=== PATIENT | male | born 1980 | race Caucasian/White ===

== ENCOUNTER 2017-05-16 19:55 | Emergency (ER) | payer BC ==
[2017-05-16 20:09] VITALS: BP 119/73; PULSE 88; RESP 18; TEMP 100.4; O2SAT 99
--- NOTE | 2017-05-16 21:20 | ED PDOC ---
History of Present Illness History of Present Illness: 36yo male, presents with complaints of bodyaches and cough for the past couple days. Patient saw his PMD yesterday and was given Tamiflu, which he has been taking with no resolution in symptoms. He states he has taken Azithromycin in the past with relief of symptoms. He denies any fever, chills. No other complaints. HPI: Influenza Time Seen by Provider: 05/16/17 20:19 Chief Complaint: Flu-like Symptoms Chief Complaint (Provider): Flu like symptoms History Per: Patient Exam Limitations: no limitations Have you had recent travel within the past 21 days to any of: No Onset/Duration Of Symptoms: Days Symptoms include: bodyaches, cough Past Medical History Reviewed: Historical Data, Nursing Documentation, Vital Signs Vital Signs: Last Vital Signs Temp 100.4 F H 05/16/17 20:05 Pulse 88 05/16/17 20:05 Resp 18 05/16/17 20:05 BP 119/73 05/16/17 20:05 Pulse Ox 99 05/16/17 20:05 - Medical History PMH: Anxiety - Surgical History Surgical History: Appendectomy - Family History Family History: States: No Known Family Hx - Home Medications Home Medications: Ambulatory Orders Medication Instructions Recorded Famotidine [Pepcid] 20 mg PO DAILY #20 tab 12/08/13 - Allergies Allergies/Adverse Reactions: Allergies Allergy/AdvReac Type Severity Reaction Status Date / Time No Known Allergies Allergy Verified 12/08/13 03:25 Review of Systems Constitutional: Positive for: Other (bodyaches). Negative for: Fever, Chills Respiratory: Positive for: Cough Physical Exam - Reviewed Nursing Documentation Reviewed: Yes Vital Signs Reviewed: Yes - Physical Exam Appears: Positive for: Non-toxic, No Acute Distress Head Exam: Positive for: ATRAUMATIC, NORMAL INSPECTION, NORMOCEPHALIC Skin: Positive for: Normal Color, Warm Eye Exam: Positive for: Normal appearance ENT: Positive for: Nasal Congestion. Negative for: Pharyngeal Erythema, Tonsillar Exudate, Tonsillar Swelling Neck: Positive for: Normal, Supple Cardiovascular/Chest: Positive for: Regular Rate, Rhythm Respiratory: Positive for: Normal Breath Sounds. Negative for: Wheezing Medical Decision Making Medical Decision Making: Impression: Influenza like illness Plan: -- Patient advised to continue Tamiflu as prescribed. Also informed to take Motrin or Tylenol as needed for fever. Patient stable for discharge home. Scribe Attestation: Documented by Marissa Kelly acting as a scribe for MIGNON Collins Provider Attestation: All medical record entries made by the Scribe were at my direction and personally dictated by me. I have reviewed the chart and agree that the record accurately reflects my personal performance of the history, physical exam, medical decision making, and the department course for this patient. I have also personally directed, reviewed, and agree with the discharge instructions and disposition. - ECG O2 Sat by Pulse Oximetry: 99 Disposition - Clinical Impression Clinical Impression: Influenza - Patient ED Disposition Is Patient to be Admitted: No Counseled Patient/Family Regarding: Diagnosis, Need For Followup - Disposition Disposition: Routine/Home Disposition Time: 22:10 Condition: GOOD Instructions: Flu, Adult (DC) Forms: [facility] (Dutch) Print Language: MALTESE
== END 2017-05-16 22:15 | disposition home or self-care (01) ==
LOC: H.ER 19:55
DX: J11.1 Influenza due to unidentified influenza virus with other respiratory manifestations (principal); F41.9 Anxiety disorder, unspecified

== ENCOUNTER 2017-09-21 11:25 | Emergency (ER) | payer BC ==
[2017-09-21 11:48] VITALS: O2SAT 98
[2017-09-21 12:32] LABS: BASO % 0.6 % (0.0-2.0); EOS # 0.2 K/uL (0.0-0.7); EOS % 4.3 % (0.0-4.0); HEMOGLOBIN 15.3 g/dL (12.0-18.0); LYMPH # 1.2 K/uL (1.0-4.3); LYMPH % 22.4 % (20.0-40.0); MEAN CORPUSCULAR HEMOGLOBIN 28.9 pg (27.0-31.0); MEAN CORPUSCULAR HGB CONC 34.8 g/dL (33.0-37.0); MEAN PLATELET VOLUME 9.5 fl (7.2-11.7); MONO # 0.4 K/uL (0.0-0.8); MONO % 6.9 % (0.0-10.0); NEUT # 3.6 K/uL (1.8-7.0); NEUT % 65.8 % (50.0-75.0); NRBC % 0.1 % (0.0-0.0); RBC 5.29 Mil/uL (4.40-5.90); RED CELL DISTRIBUTION WIDTH 13.6 % (11.5-14.5); WHITE BLOOD COUNT 5.5 K/uL (4.8-10.8)
--- NOTE | 2017-09-21 12:32 | ED PDOC ---
HPI: Chest Pain Time Seen by Provider: 09/21/17 11:31 Chief Complaint (Nursing): Chest Pain Chief Complaint (Provider): Left sided chest pain History Per: Patient History/Exam Limitations: no limitations Onset/Duration Of Symptoms: Days Additional Complaint(s): 37 yo male with history of high LDL and anxiety presents with central left chest pain. Pt states over the last 2 months he has been having episodes of chest pressure slightly to the left of the sternum, localized. PT states it lasts a few seconds and is associated with being unable to breathe and feeling weakness. Pt states it happens about once a week. Pt states the same happened today but he has chest pain in the same localized area. Pt states it lasted a few seconds like in the past however it happened again a few seconds later. Pt states after these episodes he felt a hot sensation all over his chest and going down the left arm. Pt states all has resolved. PT states he does not medication for anziety but that this feels very different than his normal anxiety attack. Pt sees Dr. Rock and has appointment with leave manager in 5 days. Past Medical History Reviewed: Historical Data, Nursing Documentation, Vital Signs Vital Signs: Last Vital Signs Temp 99 F 09/21/17 11:43 Pulse 96 H 09/21/17 11:43 Resp 18 09/21/17 11:43 BP 121/76 09/21/17 11:43 Pulse Ox 98 09/21/17 12:33 - Medical History PMH: Anxiety, Hypercholesterolemia - Surgical History Surgical History: Appendectomy - Family History Family History: States: No Known Family Hx - Living Arrangements Living Arrangements: With Family - Social History Current smoker - smoking cessation education provided: No - Home Medications Home Medications: Ambulatory Orders Medication Instructions Recorded Famotidine [Pepcid] 20 mg PO DAILY #20 tab 12/08/13 - Allergies Allergies/Adverse Reactions: Allergies Allergy/AdvReac Type Severity Reaction Status Date / Time No Known Allergies Allergy Verified 12/08/13 03:25 Review of Systems ROS Statement: Except As Marked, All Systems Reviewed And Found Negative Constitutional: Positive for: Weakness. Negative for: Fever, Chills Cardiovascular: Positive for: Chest Pain. Negative for: Palpitations, Orthopnea Respiratory: Positive for: Shortness of Breath. Negative for: SOB with Exertion Physical Exam - Reviewed Nursing Documentation Reviewed: Yes Vital Signs Reviewed: Yes - Physical Exam Appears: Positive for: Well, Non-toxic, No Acute Distress Head Exam: Positive for: ATRAUMATIC, NORMAL INSPECTION, NORMOCEPHALIC Skin: Positive for: Normal Color, Warm, DRY Eye Exam: Positive for: Normal appearance ENT: Positive for: Normal ENT Inspection Neck: Positive for: Normal, Painless ROM Cardiovascular/Chest: Positive for: Regular Rate, Rhythm Respiratory: Positive for: Normal Breath Sounds. Negative for: Accessory Muscle Use, Respiratory Distress Back: Positive for: Normal Inspection Extremity: Positive for: Normal ROM Neurologic/Psych: Positive for: Alert, Oriented - Laboratory Results Result Diagrams: 09/21/17 12:20 09/21/17 12:20 - ECG O2 Sat by Pulse Oximetry: 98 Medical Decision Making Medical Decision Making: Discussed case with Dr. Saida Rock. Would like repeat troponin in 4 hours. If normal patient can follow-up with him and leave manager on wednesday. Disposition - Clinical Impression Clinical Impression: Chest pain - Patient ED Disposition Is Patient to be Admitted: No Counseled Patient/Family Regarding: Diagnosis, Need For Followup - Disposition Referrals: James Velarde MD [Staff Provider] - Disposition: Routine/Home Disposition Time: 16:56 Condition: STABLE Instructions: Chest Pain That Is Not Caused by the Heart (DC) Forms: [facility] [facility] (Citizen Of [place]) Print Language: MACEDONIAN
[2017-09-21 12:44] LABS: ALB/GLOB RATIO 1.5 (1.0-2.1); ALBUMIN 4.3 g/dL (3.5-5.0); ALT/SGPT 36 U/L (21-72); AST/SGOT 26 U/L (17-59); BLOOD UREA NITROGEN 15 mg/dl (9-20); CALCIUM 8.9 mg/dL (8.4-10.2); GFR AFRICAN-AMERICAN > 60; GFR NON-AFRICAN AMERICAN > 60
[2017-09-21 13:24] LABS: BARBITURATES, UR NEGATIVE (NEGATIVE); BENZODIAZEPINES, UR NEGATIVE (NEGATIVE); OPIATES, UR NEGATIVE (NEGATIVE); PHENCYCLIDINE, UR NEGATIVE (NEGATIVE)
--- NOTE | 2017-09-21 14:01 | RAD ---
Date of service: 09/21/2017 HISTORY: intermittent chest pressure x 2 months COMPARISON: Comparison chest 12/08/2013 TECHNIQUE: Chest PA and lateral FINDINGS: LUNGS: No active pulmonary disease. PLEURA: No significant pleural effusion identified. No pneumothorax apparent. CARDIOVASCULAR: Normal. OSSEOUS STRUCTURES: No significant abnormalities. VISUALIZED UPPER ABDOMEN: Normal. OTHER FINDINGS: None. IMPRESSION: No active disease.
[2017-09-21 17:35] VITALS: BP 107/62; PULSE 71; RESP 22; TEMP 98.4
--- NOTE | 2017-09-22 11:21 | CARD ---
APPROVED REPORT Date of service: 09/21/2017 EKG Measurement Heart [id number] <Conclusion> Sinus tachycardia Incomplete right bundle branch block Borderline ECG
== END 2017-09-21 17:32 | disposition home or self-care (01) ==
LOC: H.ER 11:25
DX: R07.9 Chest pain, unspecified (principal); E78.00 Pure hypercholesterolemia, unspecified; F41.9 Anxiety disorder, unspecified
CPT/HCPCS: 71046; 80053; 84484; 85025; 93005; 99285; G0480

== ENCOUNTER 2018-03-03 20:48 | Emergency (ER) | payer SELFPAY ==
[2018-03-03 21:02] VITALS: O2SAT 99
--- NOTE | 2018-03-03 23:58 | ED PDOC ---
HPI: General Adult Time Seen by Provider: 03/03/18 21:24 Chief Complaint (Nursing): Palpitations Chief Complaint (Provider): Anxiety after taking OTC medication History Per: Patient History/Exam Limitations: no limitations Onset/Duration Of Symptoms: Days Have you had recent travel within the past 21 days to any of the following countries: [place], [place], [place] or [place]?: No Current Symptoms Are (Timing): Still Present Additional Complaint(s): 37 yo male with history of anxiety presents for evaluation after having an anxiety attack. Pt now reports only a red rash on face, neck and chest. Pt is states he took and OTC medication for erectile dysfunction. PT reports taking half the pill. Pt states he felt a fush sensation come over his body and began having anxiety. PT reports palpitations, sweating and feeling anxious which is similar to previous panic atacks. Pt reports feeling much better in ER. Pt is now only complaining of rash on chest. Past Medical History Reviewed: Historical Data, Nursing Documentation, Vital Signs Vital Signs: Last Vital Signs Temp 98.0 F 03/03/18 21:00 Pulse 93 H 03/03/18 21:00 Resp 18 03/03/18 21:00 BP 162/88 H 03/03/18 21:00 Pulse Ox 99 03/03/18 21:00 - Medical History PMH: Anxiety, Hypercholesterolemia Denies: Chronic Kidney Disease - Surgical History Surgical History: Appendectomy - Family History Family History: States: No Known Family Hx - Living Arrangements Living Arrangements: With Family - Social History Current smoker - smoking cessation education provided: No - Home Medications Home Medications: Ambulatory Orders Medication Instructions Recorded Famotidine [Pepcid] 20 mg PO DAILY #20 tab 12/08/13 - Allergies Allergies/Adverse Reactions: Allergies Allergy/AdvReac Type Severity Reaction Status Date / Time No Known Allergies Allergy Verified 12/08/13 03:25 Review of Systems ROS Statement: Except As Marked, All Systems Reviewed And Found Negative Constitutional: Positive for: Sweats. Negative for: Fever, Chills Cardiovascular: Positive for: Palpitations. Negative for: Chest Pain Gastrointestinal: Negative for: Nausea, Vomiting, Abdominal Pain, Diarrhea Musculoskeletal: Negative for: Neck Pain Skin: Positive for: Rash Psych: Positive for: Anxiety. Negative for: Depression, Psychosis, Suicidal ideation Physical Exam - Reviewed Nursing Documentation Reviewed: Yes Vital Signs Reviewed: Yes - Physical Exam Appears: Positive for: Well, Non-toxic, No Acute Distress Head Exam: Positive for: ATRAUMATIC, NORMAL INSPECTION, NORMOCEPHALIC Skin: Positive for: Warm, Rash (Chest, erythematous blanching papules). Negative for: Normal Color Eye Exam: Positive for: Normal appearance ENT: Positive for: Normal ENT Inspection Neck: Positive for: Normal, Painless ROM Cardiovascular/Chest: Positive for: Regular Rate, Rhythm Respiratory: Positive for: Normal Breath Sounds. Negative for: Accessory Muscle Use, Respiratory Distress Back: Positive for: Normal Inspection Extremity: Positive for: Normal ROM Neurologic/Psych: Positive for: Alert, Oriented, Gait - ECG O2 Sat by Pulse Oximetry: 99 Pulse Ox Interpretation: Normal Disposition - Clinical Impression Clinical Impression: Medication reaction, Anxiety - Patient ED Disposition Is Patient to be Admitted: No Counseled Patient/Family Regarding: Diagnosis, Need For Followup - Disposition Disposition: Routine/Home Disposition Time: 00:01 Condition: GOOD Instructions: Anxiety, Adult (DC) Print Language: LITHUANIAN
[2018-03-04 00:09] VITALS: BP 152/84; PULSE 86; RESP 16; TEMP 98.2
--- NOTE | 2018-03-04 15:48 | CARD ---
APPROVED REPORT Date of service: 03/03/2018 EKG Measurement Heart [id number] OK [id number] <Conclusion> Sinus tachycardia Otherwise normal ECG
== END 2018-03-04 00:08 | disposition home or self-care (01) ==
LOC: H.ER 20:48
DX: F41.9 Anxiety disorder, unspecified (principal); T88.7XXA Unspecified adverse effect of drug or medicament, initial encounter; E78.00 Pure hypercholesterolemia, unspecified; N52.9 Male erectile dysfunction, unspecified

== ENCOUNTER 2018-04-12 22:29 | Emergency (ER) | payer BC ==
[2018-04-12 22:32] VITALS: O2SAT 100
[2018-04-12] MEDS ORDERED: Sodium Chloride 0.9% 1,000 ML IV SCH (22:45)
--- NOTE | 2018-04-12 22:45 | ED PDOC ---
HPI:STROKE - Time Time: 22:56 - Historian Historian: Patient - Chief Complaint Chief Complaint: other - Onset Date: 04/12/18 Time: 22:00 - TPA Positive for Contraindication: Yes Reason tPA is not being Administered: head injury and nih 0 - Notes: Notes:: Pt. hit his head on the ceiling when doing something. Had no pain. Was fine. Then 1 hr ago, for 25 min he started getting warm feeling to the entire left face, arm, leg. Then it resolved except to the left face. No tingles or numbness. No droop, slurring, weakness, chest pain, or other symptoms. NIHSS Stroke Scale - Date/Time Evaluation Performed Date Performed: 04/12/18 Time Performed: 22:30 When Was NIHSS Performed: Baseline - How Severe is the Stroke Level of Consciousness: 0=Alert LOC to Questions: 0=Both comments correct LOC to commands: 0=Obeys both correctly Best Gaze: 0=Normal Visual: 0=No visual loss Facial: 0=Normal Motor Arm - Left: 0=No drift Motor Arm - Right: 0=No drift Motor Leg - Left: 0=No drift Motor Leg - Right: 0=No drift Limb Ataxia: 0=Absent Sensory: 0=Normal Best Language: 0=No aphasia Dysarthia: 0=Normal articulation Extinction & Inattention (Neglect): 0=Normal, no object Score: 0 rTPA Inclusion/Exclusion - Refusal of Treatment Patient Refused Treatment: No - Inclusion Criteria for Altepase Patient is 18 years or Older: Yes The Clinical Diagnosis of Ischemic Stroke That is Causing a Potentially Disabling Neurological Deficit: No Time of Onset is Well Established to be Less Than 270 Minute Before Treatment Would Begin: Yes Risk/Benefit Discussed With Patient/Family Member Present: No Past Medical History Reviewed: Nursing Documentation, Vital Signs Vital Signs: Last Vital Signs Temp 98.0 F 04/12/18 22:30 Pulse 87 04/12/18 22:30 Resp 16 04/12/18 22:30 BP 123/76 04/12/18 22:30 Pulse Ox 100 04/12/18 22:30 - Medical History PMH: Anxiety, Hypercholesterolemia Denies: Chronic Kidney Disease - Surgical History Surgical History: Appendectomy - Family History Family History: States: Unknown Family Hx - Living Arrangements Living Arrangements: With Family - Home Medications Home Medications: Ambulatory Orders Medication Instructions Recorded Famotidine [Pepcid] 20 mg PO DAILY #20 tab 12/08/13 - Allergies Allergies/Adverse Reactions: Allergies Allergy/AdvReac Type Severity Reaction Status Date / Time No Known Allergies Allergy Verified 04/12/18 22:29 Review of Systems ROS Statement: Except As Marked, All Systems Reviewed And Found Negative Neurological: Positive for: Other (warm feeling) Physical Exam - Reviewed Nursing Documentation Reviewed: Yes Vital Signs Reviewed: Yes - Physical Exam Appears: Positive for: Non-toxic, No Acute Distress Head Exam: Positive for: NORMOCEPHALIC. Negative for: ATRAUMATIC, NORMAL INSPECTION (top of head with 1cm abrasion; nontender; no echymosis) Skin: Positive for: Normal Color, Warm, DRY Eye Exam: Positive for: EOMI, Normal appearance, PERRL ENT: Positive for: Normal ENT Inspection Neck: Positive for: Normal, Painless ROM Cardiovascular/Chest: Positive for: Regular Rate, Rhythm Respiratory: Positive for: CNT, Normal Breath Sounds Gastrointestinal/Abdominal: Positive for: Normal Exam, Soft. Negative for: Tenderness Back: Positive for: Normal Inspection. Negative for: L CVA Tenderness, R CVA Tenderness Extremity: Positive for: Normal ROM. Negative for: Tenderness, Pedal Edema Neurologic/Psych: Positive for: Alert, critical care registered nurse II-XII, Oriented. Negative for: Motor/Sensory Deficits, Aphasia, Facial Droop - Laboratory Results Result Diagrams: 04/12/18 22:45 04/12/18 22:45 Lab Results: 194 sugar; 3.5 k - ECG ECG: Positive for: Interpreted By Me, Viewed By Me ECG Rhythm: Positive for: Normal QRS, Normal ST Segment, Sinus Rhythm O2 Sat by Pulse Oximetry: 100 Pulse Ox Interpretation: Normal - Radiology X-Ray: Interpreted by Me, Viewed By Me X-Ray Interpretation: No Acute Disease - CT Scan/US ct Other Rad Studies (CT/US): Read By Radiologist Other Rad Interpretation: no acute - Progress ED Course And Treament: 2344: Stable. Injury likely cause of pt. symptoms. Fu with pcp. AAOx3. No sensory or motor deficits. Disposition - Clinical Impression Clinical Impression: Head injury, Abrasion, Hyperglycemia, Hypokalemia - Patient ED Disposition Is Patient to be Admitted: No Counseled Patient/Family Regarding: Studies Performed, Diagnosis, Need For Followup - Disposition Referrals: [facility] [Outside] - 04/13/18 Disposition: Routine/Home Disposition Time: 23:10 Condition: STABLE Additional Instructions: Return if not better in 3 days. Instructions: Hyperglycemia, Adult, Hypokalemia (DC), Closed Head Injury, Skin Abrasions (DC) Forms: [facility] ED School/Work Excuse, [facility] (Irish), [facility] (Latvian) Print Language: AMHARIC
[2018-04-12 22:55] LABS: BASO # 0.1 K/uL (0.0-0.2); BASO % 0.9 % (0.0-2.0); EOS # 0.2 K/uL (0.0-0.7); EOS % 3.1 % (0.0-4.0); HEMOGLOBIN 15.1 g/dL (12.0-18.0); LYMPH # 2.1 K/uL (1.0-4.3); LYMPH % 30.6 % (20.0-40.0); MEAN CELL VOLUME 84.4 fl (80.0-94.0); MEAN CORPUSCULAR HEMOGLOBIN 28.7 pg (27.0-31.0); MEAN PLATELET VOLUME 10.3 fl (7.2-11.7); MONO # 0.4 K/uL (0.0-0.8); MONO % 6.2 % (0.0-10.0); NEUT # 4.1 K/uL (1.8-7.0); NEUT % 59.2 % (50.0-75.0); RBC 5.26 Mil/uL (4.40-5.90); WHITE BLOOD COUNT 6.9 K/uL (4.8-10.8)
[2018-04-12 23:04] LABS: INR 1.2; PROTHROMBIN TIME 13.8 Seconds (9.8-13.1)
[2018-04-12 23:06] LABS: ALB/GLOB RATIO 1.6 (1.0-2.1); ALBUMIN 4.2 g/dL (3.5-5.0); ALT/SGPT 38 U/L (21-72); AST/SGOT 29 U/L (17-59); BLOOD UREA NITROGEN 18 mg/dl (9-20); CALCIUM 8.7 mg/dL (8.4-10.2); GFR NON-AFRICAN AMERICAN > 60; HDL CHOLESTEROL 49 MG/DL (30-70); PARTIAL THROMBOPLASTIN TIME 34.1 Seconds (25.6-37.1)
[2018-04-12 23:17] LABS: LDL CHOLESTEROL 89 mg/dL (0-129)
[2018-04-12] MEDS ORDERED: Potassium Chloride 20 mEq ER Tab PO STA (23:45)
[2018-04-12] MEDS ORDERED: Potassium Chloride 20 mEq ER Tab PO ONE (23:53)
[2018-04-13 02:00] VITALS: BP 112/60; PULSE 75; RESP 17; TEMP 98.2
--- NOTE | 2018-04-13 08:26 | CT ---
Date of service: 04/12/2018 PROCEDURE: CT HEAD WITHOUT CONTRAST. HISTORY: code stroke COMPARISON: None available. TECHNIQUE: Axial computed tomography images were obtained through the head/brain without intravenous contrast. Radiation dose: Total exam DLP = 1008.07 mGy-cm. This CT exam was performed using one or more of the following dose reduction techniques: Automated exposure control, adjustment of the mA and/or kV according to patient size, and/or use of iterative reconstruction technique. FINDINGS: HEMORRHAGE: No intracranial hemorrhage. BRAIN: No mass effect or edema. No atrophy or chronic microvascular ischemic changes. VENTRICLES: Unremarkable. No hydrocephalus. CALVARIUM: Unremarkable. PARANASAL SINUSES: Unremarkable as visualized. No significant inflammatory changes. MASTOID AIR CELLS: Unremarkable as visualized. No inflammatory changes. OTHER FINDINGS: None. IMPRESSION: Normal CT of the Head. Concordant results (preliminary interpretation) provided by [facility].
--- NOTE | 2018-04-13 08:44 | RAD ---
Date of service: 04/12/2018 HISTORY: Code Stroke COMPARISON: 09/21/2017 FINDINGS: LUNGS: No active pulmonary disease. PLEURA: No significant pleural effusion identified, no pneumothorax apparent. CARDIOVASCULAR: No aortic atherosclerotic calcification present. Normal cardiac size. No pulmonary vascular congestion. OSSEOUS STRUCTURES: No significant abnormalities. VISUALIZED UPPER ABDOMEN: Normal. OTHER FINDINGS: None. IMPRESSION: No active disease. No interval pathology noted.
--- NOTE | 2018-04-13 11:09 | CARD ---
APPROVED REPORT Date of service: 04/12/2018 EKG Measurement Heart [id number] [id number] <Conclusion> Normal sinus rhythm Incomplete right bundle branch block Borderline ECG
== END 2018-04-13 00:15 | disposition home or self-care (01) ==
LOC: H.ER 22:29
DX: S09.90XA Unspecified injury of head, initial encounter (principal); S00.81XA Abrasion of other part of head, initial encounter; W22.8XXA Striking against or struck by other objects, initial encounter; Y92.89 Other specified places as the place of occurrence of the external cause; E87.6 Hypokalemia; R73.9 Hyperglycemia, unspecified; E78.00 Pure hypercholesterolemia, unspecified; F41.9 Anxiety disorder, unspecified